=== PATIENT | female | born 1940 | race Caucasian/White ===

== ENCOUNTER 2017-06-16 10:06 | Emergency (ER) | payer OTHER ==
[~2017-06-16] VITALS: Ht 157.5 cm; Wt 49.0 kg
[~2017-06-16 10:06] MED LIST: BYDUREON2 M1; BYSTOLIC5 M1 PO; CLONIDINE HCL0.2 M1 PO; CLONIDINE PO; MASON NATURAL1200 MG PO; NEXIUM PO; REG10I IV; SAVAYSA60 MG PO; VITAMIN C500 MG PO; VITAMIN D32000 I2 PO; ZES10 PO; ZOC10 PO; ZOFI IV
[2017-06-16 10:13] VITALS: Ht 157.5 cm; Wt 49.0 kg
[2017-06-16 11:02] LABS: BASOPHIL % 0.3 % (0-2); CALCIUM 9.1 mg/dL (8.5-10.1); CARBON DIOXIDE 23.3 mmol/L (21-32); CHLORIDE SERUM 98 mmol/L (98-107); CREATININE SERUM 0.8 mg/dL (0.6-1.0); GLUCOSE SERUM 108 mg/dL (74-106); PLATELET COUNT 189 x10^3mcL (130-400); POTASSIUM SERUM 4.3 mmol/L (3.5-5.1); RED CELL DISTRIBUTION WIDTH 12.6 % (11.5-14.5); SODIUM SERUM 133 mmol/L (136-145)
[2017-06-16 11:07] LABS: ALBUMIN 4.2 g/dL (3.4-5.0); ALKALINE PHOSPHATASE 87 U/L (46-116); ALT/SGPT 41 U/L (14-59); AST/SGOT 42 U/L (15-37); BILIRUBIN TOTAL 0.63 mg/dL (0.20-1.00); TOTAL PROTEIN, SERUM 7.8 g/dL (6.4-8.2)
[2017-06-16 11:48] LABS: microscopic required? YES; urine erythrocyte 2+ (NEGATIVE)
[2017-06-16 12:31] VITALS: BP 144/75
== END 2017-06-16 12:31 | disposition home or self-care (01) ==
LOC: ED 10:06
PROVIDERS: Emergency Medicine
DX: R07.89 Other chest pain (principal); N39.0 Urinary tract infection, site not specified; F17.210 Nicotine dependence, cigarettes, uncomplicated; I10 Essential (primary) hypertension; I48.91 Unspecified atrial fibrillation; Z95.5 Presence of coronary angioplasty implant and graft; Z71.6 Tobacco abuse counseling
CPT/HCPCS: 36415; 83880; 85378; 99406